=== PATIENT | female | born 1940 | race Caucasian/White ===

== ENCOUNTER 2024-05-10 19:00 | Emergency (ER) | payer MEDICARE, MEDICAID ==
[2024-05-10 19:40] VITALS: BP 163/68; PULSE 101
[2024-05-10] MEDS: valACYclovir 1,000 MG Tab PO ONE (20:53)
== END 2024-05-10 21:02 | disposition home or self-care (01) ==
LOC: DL.ED 19:00
DX: B00.89 Other herpesviral infection (principal); I10 Essential (primary) hypertension; E78.00 Pure hypercholesterolemia, unspecified; E66.9 Obesity, unspecified; E11.9 Type 2 diabetes mellitus without complications; F17.210 Nicotine dependence, cigarettes, uncomplicated; Z88.0 Allergy status to penicillin; Z88.8 Allergy status to other drugs, medicaments and biological substances; Z79.82 Long term (current) use of aspirin; Z79.899 Other long term (current) drug therapy; Z90.49 Acquired absence of other specified parts of digestive tract; Z90.710 Acquired absence of both cervix and uterus; Z68.35 Body mass index [BMI] 35.0-35.9, adult
CPT/HCPCS: 87529; 99283; A9270

== ENCOUNTER 2024-12-14 19:40 | Emergency (ER) | payer MEDICAID, MEDICARE, OTHER ==
[2024-12-14 21:02] VITALS: BP 152/67; PULSE 77
== END 2024-12-14 21:11 | disposition home or self-care (01) ==
LOC: DL.ED 19:40
DX: G25.81 Restless legs syndrome (principal); I10 Essential (primary) hypertension; E11.9 Type 2 diabetes mellitus without complications; K21.9 Gastro-esophageal reflux disease without esophagitis; J44.9 Chronic obstructive pulmonary disease, unspecified; E66.9 Obesity, unspecified; E78.00 Pure hypercholesterolemia, unspecified; Z88.8 Allergy status to other drugs, medicaments and biological substances; Z88.1 Allergy status to other antibiotic agents; Z88.0 Allergy status to penicillin; Z88.4 Allergy status to anesthetic agent; Z79.82 Long term (current) use of aspirin; Z79.899 Other long term (current) drug therapy; Z79.891 Long term (current) use of opiate analgesic; Z79.52 Long term (current) use of systemic steroids; Z79.2 Long term (current) use of antibiotics; Z90.49 Acquired absence of other specified parts of digestive tract; Z90.710 Acquired absence of both cervix and uterus
CPT/HCPCS: 99283